=== PATIENT | female | born 1940 | race Caucasian/White ===

== ENCOUNTER → 2016-09-15 16:28 | Outpatient (CLI) | payer MEDICARE, BC ==
[2016-07-23 06:44] VITALS: BMI 27.8
[~2016-09-15 16:28] MED LIST: BAYER CHEWABLE81 MG PO; CALCIUM 600+D T1 TA1 PO; CATAPRES0.1 MG; CENTRUM COMPLE1 EACH PO; COZAAR25 MG PO; EVISTA60 MG PO; FUROSEMIDE20 MG PO; LIPITOR20 MG PO; NIFEDIPINE ER30 MG PO; TOPROL XL100 MG PO
== END | disposition home or self-care (01) ==
LOC: D.MAMMO 13:30
DX: R92.8 Other abnormal and inconclusive findings on diagnostic imaging of breast (principal)

== ENCOUNTER → 2017-03-16 16:58 | Outpatient (CLI) | payer MEDICARE, BC ==
[2016-07-23 06:44] VITALS: BMI 27.8
== END | disposition home or self-care (01) ==
LOC: D.MAMMO 09:00
DX: R92.8 Other abnormal and inconclusive findings on diagnostic imaging of breast (principal)

== ENCOUNTER → 2017-11-25 16:32 | Outpatient (CLI) | payer MEDICARE, BC ==
[2016-07-23 06:44] VITALS: BMI 27.8
[~2017-11-25 16:32] MED LIST changes: +COZAAR50 MG PO; +FEMARA2.5 MG PO; -FUROSEMIDE20 MG PO; +HYDROCODONE-APA1 TAB PO; +LASIX20 MG PO; +METOPROLOL TAR100 M1 PO
== END | disposition home or self-care (01) ==
LOC: D.MAMMO 09-20 09:00 → D.US 09-20 10:00 → D.MAMMO 10-14 13:30 → D.US 10-14 14:00 → D.MAMMO 10-26 10:30
DX: R92.8 Other abnormal and inconclusive findings on diagnostic imaging of breast (principal)

== ENCOUNTER → 2017-12-09 16:16 | Outpatient (CLI) | payer MEDICARE, BC ==
[2016-07-23 06:44] VITALS: BMI 27.8
== END | disposition home or self-care (01) ==
LOC: D.MAMMO 08:00 → D.US 10:00 → D.MAMMO 10:00
DX: R92.1 Mammographic calcification found on diagnostic imaging of breast (principal)

== ENCOUNTER 2018-01-18 05:59 | Day surgery (SDC) | payer MEDICARE, BC ==
[~2018-01-18] VITALS: Ht 167.6 cm; Wt 76.8 kg
[2018-01-18] VITALS (8 sets, daily range): BP systolic 139–169; BP diastolic 62–78; Ht 167.6 cm; Wt 76.8 kg
--- NOTE | ~2018-01-18 | OP ---
PATIENT NAME: ASHLEY HUMPHRIES MEDICAL RECORD: [id number] :40 LOCATION:[facility] D.1273 ADMISSION DATE: SURGEON: ANTHONY MCHUGH MD DATE OF OPERATION: 01/18/2018 PREOPERATIVE DIAGNOSES: 1. Recurrent right breast cancer. 2. Coronary artery disease. 3. Hypertension. 4. Hypercholesterolemia. POSTOPERATIVE DIAGNOSES: 1. Recurrent right breast cancer. 2. Coronary artery disease. 3. Hypertension. 4. Hypercholesterolemia. PROCEDURE: Right simple mastectomy with right axillary sentinel lymph node biopsy. SURGEON: Anthony Mchugh MD APPLICATIONS MANAGER: Anastasiia Stark APRN REPORT OF PROCEDURE: The patient's right chest and axilla were prepped and draped in sterile fashion. Preoperatively, the patient had undergone lymphoscintigraphy. We were able to localize a sentinel lymph node in the patient's right axilla. An ovoid incision was made over the patient's right chest including the patient's nipple areolar complex. Electrocautery was used to dissect through the subcutaneous tissues and we came underneath the tissues above and below creating superior and inferior flaps. Once we had the breast completely encircled from the overlying skin, then it was taken off of the pectoral muscle using electrocautery. This dissection was continued all the way up to the clavicle superiorly to the sternum medially inferiorly down to the superior aspect of the rectus muscles and laterally to the axillary fascia. Once the specimen was taken off, then it was marked appropriately and sent off for permanent. We then inspected the axilla and was able to find a single sentinel lymph node, we registered a reading of 1669. The sentinel lymph node was removed with multiple clips around the surrounding tissues and was sent off for permanent specimen. We inspected the remainder of the axilla and never saw any further signs of sentinel lymph nodes. We then irrigated out the wound thoroughly with sterile water and inspected to assure there was no sign of any active bleeding. A 10 flat PILO drains times 2 were placed through the patient's right axilla and rested over the pectoral muscle and in the right axilla. These were sutured into place with 3-0 nylons. The subcutaneous tissues were then reapproximated with interrupted 3-0 Vicryl and the skin incision was closed with bj. COMPLICATIONS: None. CONDITION: Stable. ANESTHESIA: General endotracheal. BLOOD LOSS: 30 mL. OPERATIVE REPORT [id number] ASHLEY HUMPHRIES TRANSINT:[id number] Voice Confirmation ID: [id number] DOCUMENT ID: [id number] ANTHONY MCHUGH MD at 0905 CC: SILVIANO GASPAR MD and ALEXIS MA [id number] DICTATION DATE: 01/18/18 1255 COSTUME SHOP MANAGER: 01/18/18 1405 [facility] [place] [id number] [place] [id number]
[~2018-01-18 05:59] MED LIST changes: -FEMARA2.5 MG PO; -HYDROCODONE-APA1 TAB PO
[2018-01-18 06:48] LABS: BASOPHILS 0.3 % (0-2); EOSINOPHILS 4.3 % (0-7); HEMATOCRIT 42.7 % (36.0-48.0); HEMOGLOBIN 13.9 g/dL (12-16); IMMATURE GRANULOCYTES 0.1 % (0-5); MCHC 32.6 g/dL (31.0-37.0); MCV 89.1 fL (80.0-100.0); MEAN PLATELET VOLUME 9.7 fL (7.4-10.4); MONOCYTES 8.4 % (2-11); NEUTROPHILS 60.9 % (40-80); PLATELET COUNT 267 10x3/uL (130-400); RBC 4.79 10x6/uL (4.00-5.40); RDW 13.1 % (11.5-14.5); WBC 9.2 10x3/uL (4.8-10.8)
[2018-01-18 06:58] LABS: APTT 31.2 SECONDS (22.8-39.4); INR 0.99 (0.85-1.17); PROTIME 12.7 SECONDS (11.6-15.0)
[2018-01-18 07:01] LABS: ANION GAP 11.9 mmol/L (8-16); CALCIUM 9.5 mg/dL (8.5-10.1); CARBON DIOXIDE 30.4 mmol/L (21.0-32.0); CREATININE - SERUM 1.4 mg/dL (0.6-1.3); POTASSIUM - SERUM 4.3 mmol/L (3.5-5.1)
[2018-01-19 03:12] VITALS: BP 148/66
[2018-01-19 07:30] LABS: BASOPHILS 0.2 % (0-2); EOSINOPHILS 3.8 % (0-7); HEMATOCRIT 35.9 % (36.0-48.0); HEMOGLOBIN 11.3 g/dL (12-16); IMMATURE GRANULOCYTES 0.1 % (0-5); LYMPHOCYTES 31.3 % (15-50); MCH 28.5 pg (26.0-34.0); MCHC 31.5 g/dL (31.0-37.0); MCV 90.7 fL (80.0-100.0); MEAN PLATELET VOLUME 10.3 fL (7.4-10.4); MONOCYTES 8.9 % (2-11); NEUTROPHILS 55.7 % (40-80); PLATELET COUNT 230 10x3/uL (130-400); RBC 3.96 10x6/uL (4.00-5.40); RDW 13.4 % (11.5-14.5); WBC 9.5 10x3/uL (4.8-10.8)
[2018-01-19 07:41] LABS: CALCIUM 8.3 mg/dL (8.5-10.1); CARBON DIOXIDE 26.6 mmol/L (21.0-32.0); CREATININE - SERUM 1.2 mg/dL (0.6-1.3); POTASSIUM - SERUM 4.6 mmol/L (3.5-5.1)
[2018-01-19 08:10] VITALS: BP 144/64
[2018-01-19] MEDS ORDERED: HYDROCODONE-APA1 TAB PO (09:05)
== END 2018-01-19 11:30 | disposition home or self-care (01) ==
LOC: D.LD 05:59 → D.OPS 05:59 → D.NM 08:00 → D.PAN 08:00 → D.LD 13:18 → D.OPS 01-19 11:30
PROVIDERS: Anesthesiology; Surgery
DX: C50.911 Malignant neoplasm of unspecified site of right female breast (principal); I25.10 Atherosclerotic heart disease of native coronary artery without angina pectoris; I10 Essential (primary) hypertension; E78.00 Pure hypercholesterolemia, unspecified; G47.30 Sleep apnea, unspecified; Z01.812 Encounter for preprocedural laboratory examination

== ENCOUNTER → 2018-02-02 09:42 | Outpatient (CLI) | payer MEDICARE, BC ==
[2018-01-18 16:39] VITALS: BMI 27.3
--- NOTE | ~2018-02-02 | EC ---
PATIENT:ASHLEY HUMPHRIES DATE OF SERVICE: 02/02/18 SEX: F MEDICAL RECORD: [id number] DATE OF : 40 LOCATION:[facility] AGE OF PATIENT: 77 ADMISSION DATE: 02/02/18 REFERRING PHYSICIAN: INTERPRETING PHYSICIAN: TAYLOR ASTUDILLO MD ECHOCARDIOGRAM REPORT ECHO CHARGES Date: CLINICAL DIAGNOSIS: ECHOCARDIOGRAPHIC MEASUREMENTS (adult normal given) AC root (d.<3.7cm) cm LV Septum d (<1.2 cm> cm Valve Excursion cm LV Septum (systole) cm Left Atria (s.<4.0cm> cm LVPW d(<1.2cm) cm RV (d.<2.3cm) cm LVPW (sytole) cm LV diastole(<5.6CM) cm MV E-F(>70mm/sec) cm LV systole cm LVOT Diameter cm MV exc.(>10mm) cm Est.ejection fraction (50-75%) % DOPPLER: LVIT cm/sec A cm/sec E cm/sec LA cm/sec RVSP mmHg LVOT cm/sec AOP1/2T m/s Asc. Ao cm/sec RVOT cm/sec RA cm/sec PA cm/sec AV Gradient Peak mmHg AV Mean mmHg AV Area cm MV Gradient Peak mmHg MV Mean mmHg MV Area cm COMMENTS: Licensed Practical Nurse: Windows Application Packager: [email or web address]# Pericardial Effusion DATE OF SERVICE: 02/02/2018 FINDINGS: 1. Left ventricular chamber size is within normal limits. Left ventricular systolic function is normal. Overall ejection fraction estimated at 55% to 60%. 2. Left atrium, right atrium, and right ventricle chamber sizes are within normal limits. 3. Valvular structures have normal structure and motion. 4. Doppler interrogation reveals only trace mitral regurgitation, trace tricuspid regurgitation, no other valvular insufficiency or stenosis. Pulmonary ECHOCARDIOGRAM REPORT [id number] ASHLEY HUMPHRIES systolic pressure is estimated 36 mmHg. 5. No evidence of pericardial effusion or left ventricular thrombus. TRANSINT:[id number] Voice Confirmation ID: [id number] DOCUMENT ID: [id number] TAYLOR ASTUDILLO MD at 1711 CC: [id number] DICTATION DATE: 02/02/18 1107 INSPECTOR REPAIRER SANDSTONE: 02/02/18 1227 [facility] [address] [place] [address]
[~2018-02-02 09:42] MED LIST changes: +FEMARA2.5 MG PO; +HYDROCODONE-APA1 TAB PO
== END | disposition home or self-care (01) ==
LOC: D.ECHO 09:42
DX: C50.811 Malignant neoplasm of overlapping sites of right female breast (principal)

== ENCOUNTER 2018-02-07 07:14 | Outpatient (CLI) | payer MEDICARE, BC ==
[~2018-02-07] VITALS: Ht 167.6 cm; Wt 75.0 kg
[~2018-02-07 07:14] MED LIST changes: -FEMARA2.5 MG PO
[2018-02-07] MEDS ORDERED: FEMARA2.5 MG PO (07:52)
[2018-02-07 08:00] VITALS: BP 142/72; Ht 167.6 cm; Wt 75.0 kg
[2018-02-07 08:00] LABS: BASOPHILS 0.3 % (0-2); EOSINOPHILS 3.9 % (0-7); HEMATOCRIT 39.9 % (36.0-48.0); HEMOGLOBIN 13.1 g/dL (12-16); IMMATURE GRANULOCYTES 0.1 % (0-5); LYMPHOCYTES 25.8 % (15-50); MCH 29.1 pg (26.0-34.0); MCHC 32.8 g/dL (31.0-37.0); MCV 88.7 fL (80.0-100.0); MEAN PLATELET VOLUME 9.6 fL (7.4-10.4); MONOCYTES 8.4 % (2-11); NEUTROPHILS 61.5 % (40-80); RDW 13.2 % (11.5-14.5); WBC 7.2 10x3/uL (4.8-10.8)
[2018-02-07 08:04] LABS: PLATELET COUNT 307 10x3/uL (130-400)
[2018-02-07 08:09] LABS: INR 0.99 (0.85-1.17); PROTIME 12.7 SECONDS (11.6-15.0)
[2018-02-07 08:10] LABS: APTT 30.2 SECONDS (22.8-39.4)
[2018-02-07 08:11] LABS: ANION GAP 11.9 mmol/L (8-16); CARBON DIOXIDE 28.9 mmol/L (21.0-32.0); CREATININE - SERUM 1.3 mg/dL (0.6-1.3); POTASSIUM - SERUM 3.8 mmol/L (3.5-5.1)
== END 2018-02-07 14:00 | disposition home or self-care (01) ==
LOC: D.SP 07:14
PROVIDERS: Radiology Vascular & Interventional Radiology
DX: R91.8 Other nonspecific abnormal finding of lung field (principal); C50.811 Malignant neoplasm of overlapping sites of right female breast; Z01.812 Encounter for preprocedural laboratory examination

== ENCOUNTER → 2018-06-07 13:53 | Outpatient (CLI) | payer MEDICARE, BC ==
[2018-02-07 08:00] VITALS: BMI 26.7
[~2018-06-07 13:53] MED LIST changes: +FEMARA2.5 MG PO; -NIFEDIPINE ER30 MG PO; +NIFEDIPINE60 MG/BOTT PO; +NORCO 10-325 TA1 TAB PO
== END | disposition home or self-care (01) ==
LOC: D.RAD 08:00
DX: C50.811 Malignant neoplasm of overlapping sites of right female breast (principal)

== ENCOUNTER 2018-07-05 05:39 | Day surgery (SDC) | payer MEDICARE, BC ==
[~2018-07-05] VITALS: Ht 167.6 cm; Wt 77.1 kg
--- NOTE | ~2018-07-05 | OP ---
PATIENT NAME: ASHLEY HUMPHRIES MEDICAL RECORD: [id number] :40 LOCATION:D.OPS ADMISSION DATE: SURGEON: ANTHNOY MCHUGH MD DATE OF OPERATION: 07/05/2018 PREOPERATIVE DIAGNOSES: 1. Breast cancer. 2. Hypertension. 3. Hyperlipidemia. 4. Atrial fibrillation. POSTOPERATIVE DIAGNOSES: 1. Breast cancer. 2. Hypertension. 3. Hyperlipidemia. 4. Atrial fibrillation. PROCEDURE: 1. Left subclavian vein port placement. 2. Fluoroscopic interpretation. SURGEON: Anthony Mchugh MD REPORT OF PROCEDURE: The patient's left chest was prepped and draped in sterile fashion. A needle was used to cannulate the left subclavian vein and a guidewire was advanced with ease. Fluoro was used to note that the wire was in good position in the venous system. A skin incision was made on the left superior-lateral chest and a subcutaneous pouch was made over the pectoral fascia. The catheter was tunneled between this pouch and the wire exit site. The port was then sutured to the pectoral fascia using interrupted 2-0 Prolenes times 2. The catheter was cut with a beveled tip at 25 cm. The dilator trocar device was then placed over the wire and the wire and dilator were removed. The catheter tip was advanced through the trocar and the trocar was removed. Fluoro was used to note that the wire was in good position in the venous system. The catheter aspirated nonpulsatile dark blood and flushed easily with heparinized saline. The subcutaneous tissues were then reapproximated with interrupted 3-0 Vicryl and the skin was closed with running subcutaneous 5-0 Monocryl. COMPLICATIONS: None. CONDITION: Stable. ANESTHESIA: General endotracheal. BLOOD LOSS: Minimal. TRANSINT:[id number] Voice Confirmation ID: [id number] DOCUMENT ID: [id number] OPERATIVE REPORT [id number] ASHLEY HUMPHRIES ANTHONY MCHUGH MD at 0916 CC: SILVIANO GASPAR MD and ALEXIS MA [phone] DICTATION DATE: 07/05/1842 WAVE SOLDER OFFBEARER: 07/05/1825 [facility] 07/05/18 [place] [address]
[~2018-07-05 05:39] MED LIST changes: -NORCO 10-325 TA1 TAB PO
[2018-07-05 06:23] LABS: ANION GAP 11.4 mmol/L (8-16); CALCIUM 9.1 mg/dL (8.5-10.1); CARBON DIOXIDE 29.8 mmol/L (21.0-32.0); CREATININE - SERUM 1.2 mg/dL (0.6-1.3); POTASSIUM - SERUM 4.2 mmol/L (3.5-5.1)
[2018-07-05 06:26] LABS: BASOPHILS 0 % (0-2); EOSINOPHILS 0.4 % (0-7); HEMATOCRIT 30.4 % (36.0-48.0); HEMOGLOBIN 9.7 g/dL (12-16); IMMATURE GRANULOCYTES 0.2 % (0-5); LYMPHOCYTES 39.1 % (15-50); MCH 28.7 pg (26.0-34.0); MCHC 31.9 g/dL (31.0-37.0); MCV 89.9 fL (80.0-100.0); MEAN PLATELET VOLUME 8.8 fL (7.4-10.4); MONOCYTES 6.5 % (2-11); NEUTROPHILS 53.8 % (40-80); PLATELET COUNT 259 10x3/uL (130-400); RBC 3.38 10x6/uL (4.00-5.40); RDW 18.7 % (11.5-14.5); WBC 4.5 10x3/uL (4.8-10.8)
[2018-07-05 06:28] LABS: INR 0.92 (0.85-1.17)
[2018-07-05 07:23] VITALS: BP 129/71; Ht 167.6 cm; Wt 77.1 kg
[2018-07-05] MEDS ORDERED: NORCO 10-325 TA1 TAB PO (08:39)
== END 2018-07-05 10:15 | disposition home or self-care (01) ==
LOC: D.OPS 05:39 → D.PAN 09:00 → D.OPS 09:00
PROVIDERS: Anesthesiology
DX: C50.919 Malignant neoplasm of unspecified site of unspecified female breast (principal); I10 Essential (primary) hypertension; E78.5 Hyperlipidemia, unspecified; I48.91 Unspecified atrial fibrillation; Z01.812 Encounter for preprocedural laboratory examination

== ENCOUNTER → 2018-07-08 10:27 | Outpatient (CLI) | payer MEDICARE, BC ==
[2018-07-05 07:23] VITALS: BMI 27.5
[~2018-07-08 10:27] MED LIST changes: +NORCO 10-325 TA1 TAB PO
== END | disposition home or self-care (01) ==
LOC: D.CT 10:27
DX: C50.811 Malignant neoplasm of overlapping sites of right female breast (principal); C34.12 Malignant neoplasm of upper lobe, left bronchus or lung; E78.2 Mixed hyperlipidemia; Z23 Encounter for immunization

== ENCOUNTER → 2018-09-13 07:20 | Outpatient (CLI) | payer MEDICARE, BC ==
[2018-07-05 07:23] VITALS: BMI 27.5
== END | disposition home or self-care (01) ==
LOC: D.CT 07:20
DX: C50.811 Malignant neoplasm of overlapping sites of right female breast (principal)

== ENCOUNTER 2018-11-06 17:25 | Inpatient (IN) | payer MEDICARE, BC ==
[~2018-11-06] VITALS: Ht 167.6 cm; Wt 77.6 kg
[2018-11-06] VITALS (8 sets, daily range): BP systolic 128–157; BP diastolic 58–75
--- NOTE | 2018-11-06 17:30 | NUR ---
PATIENT PLACED IN C-COLLAR
[2018-11-06 18:44] LABS: BASOPHILS 0.2 % (0-2); EOSINOPHILS 1.6 % (0-7); HEMATOCRIT 39.9 % (36.0-48.0); HEMOGLOBIN 13.1 g/dL (12-16); IMMATURE GRANULOCYTES 0.8 % (0-5); LYMPHOCYTES 38.4 % (15-50); MCH 28.7 pg (26.0-34.0); MCHC 32.8 g/dL (31.0-37.0); MCV 87.5 fL (80.0-100.0); MEAN PLATELET VOLUME 10.3 fL (7.4-10.4); MONOCYTES 7.9 % (2-11); NEUTROPHILS 51.1 % (40-80); PLATELET COUNT 260 10x3/uL (130-400); RBC 4.56 10x6/uL (4.00-5.40); RDW 13.7 % (11.5-14.5); WBC 11.9 10x3/uL (4.8-10.8)
[2018-11-06 18:54] LABS: APTT 27.6 SECONDS (22.8-39.4); INR 0.96 (0.85-1.17); PROTIME 12.3 SECONDS (11.6-15.0)
[2018-11-06 19:21] LABS: ALBUMIN 3.4 g/dL (3.4-5.0); ALKALINE PHOSPHATASE 70 U/L (46-116); ALT (SGPT) 38 U/L (10-68); BILIRUBIN - TOTAL 0.58 mg/dL (0.2-1.3); CALC OSMOLALITY 282 mosm/kg (275-300); CALCIUM 8.9 mg/dL (8.5-10.1); CARBON DIOXIDE 24.9 mmol/L (21.0-32.0); CHLORIDE - SERUM 102 mmol/L (98-107); CREATINE KINASE 279 UL (21-215); CREATININE - SERUM 1.4 mg/dL (0.6-1.3); GLUCOSE 138 mg/dL (74-106); POTASSIUM - SERUM 4.6 mmol/L (3.5-5.1); PRO BNP 235 pg/mL (0-450); PROTEIN - SERUM 7.8 g/dL (6.4-8.2); SODIUM 140 mmol/L (136-145); UREA NITROGEN 18 mg/dL (7-18); eGFR NON AFRICAN AMERICAN 38 mL/min (90-120)
[2018-11-07] VITALS (30 sets, daily range): BP systolic 105–159; BP diastolic 55–83; Ht 167.6 cm; Wt 77.6 kg
--- NOTE | 2018-11-07 01:10 | NUR ---
REPORT FROM JONATHAN MCKEON
--- NOTE | 2018-11-07 01:30 | NUR ---
PT DROWSY, BUT AWAKES TO NAME AND IS ORIENTED X 3
--- NOTE | 2018-11-07 01:53 | NUR ---
REPORT CALLED TO STACI RN IN CVICU, ADVISED THAT PATIENT WAS GOING TO CT AND WOULD WAIT FOR REPORT BEFORE TRANSPORT
--- NOTE | 2018-11-07 02:17 | NUR ---
PT BACK FROM CT, AWAKE AND ALERT ORIENTED X 3
--- NOTE | 2018-11-07 02:40 | NUR ---
PT DROWSY AWAKES TO NAME, PT ADVISED THAT SHE IS DOING OK, JUST HAVING SOME SLIGHT PAIN AT THIS TIME
--- NOTE | 2018-11-07 03:35 | NUR ---
REPORT CALLED PEDRITO TO JONATHAN SMALL AND UPDATED ON THE PATIENTS COND. AND THE NEW CHEST TUBE PLACEMENT
--- NOTE | 2018-11-07 03:52 | NUR ---
ARRIVED TO UNIT VIA STRETCHER, ACCOMPANIED BY SAND CONDITIONER MACHINE GLENNY. ALL ICU MONITORING INITIATED. ADMISSION ASSESSMENT COMPLETED PER FLOW SHEET, SEE FOR DETAILS. REPOSITIONED IN BED. DENIES OTHER NEEDS. CALL LIGHT WITHIN REACH. WILL CONTINUE TO MONITOR.
--- NOTE | 2018-11-07 04:26 | NUR ---
SON IN LAW AT BEDSIDE, UPDATE GIVEN, QUESTIONS ANSWERED. HE IS TAKING PATIENT'S BELONGINGS HOME WITH HIM, PATIENT AGREED.
--- NOTE | 2018-11-07 04:48 | NUR ---
ICE CHIPS PROVIDED PER PATIENTS REQUEST, TOLERATING WELL, NO N/V, OR DYSPHAGIA. WILL CONTINUE TO MONITOR.
--- NOTE | 2018-11-07 05:27 | NUR ---
ASSISSTED TO BEDPAN, NO UOP AT THIS TIME, ASSISSTED OFF OF BEDPAN. DENIES OTHER NEEDS. CALL LIGHT WITHIN REACH.
--- NOTE | 2018-11-07 07:00 | NUR ---
RECEIVED BEDSIDE REPORT AND ASSUMED CARE OF PATIENT. PATIENT ALERT AND ORIENTED X 4, IV INFUSING NS AT 20 CC/HR TO 20 GA IV TO LEFT AC WITH NO S/S OF INFILTRATION, DRESSING CLEAN, DRY AND INTACT. 22 GA IV TO LEFT WRIST, NSL, DRESSING CLEAN DRY AND INTACT, PATENT FLUSHES EASILY WITH POSITIVE BLOOD RETURN. VSS. CM - SR 98, RR 20, SPO2 - 92%, BBS CLEAR BUT DIMINISHED. CHEST TUBE TO RIGHT SIDE, WITH NO AIR LEAK DETECTED. DRESSING CLEAN DRY AND INTACT. HEAD TO TOE ASSESSMENT COMPLETED.
--- NOTE | 2018-11-07 07:41 | NUR ---
PATIENT PLACED ON BED SARAH AND GIVEN DRINK OF WATER. VSS. WILL CONTINUE TO MONITOR.
--- NOTE | 2018-11-07 07:47 | NUR ---
PATIENT TAKEN OFF BED SARAH. C/O PAIN TO RIGHT SIDE RIBS RATES 9/10, GIVEN PRN 2 MG MORPHINE IVP FOR PAIN. REPOSITIONED IN BED. VSS. VOIDED 200 CC CLOUDY YELLOW URINE.
--- NOTE | 2018-11-07 09:00 | NUR ---
PATIENT RESTING QUIETLY, VSS. TURNED AND REPOSITIONED IN BED.
--- NOTE | 2018-11-07 10:10 | NUR ---
PATIENT C/O PAIN TO RIGHT SIDE "RIBS" 510, GIVEN PRN TYLENOL 650 MG PO. REPOSITIONED IN BED. VSS.
--- NOTE | 2018-11-07 11:00 | NUR ---
REASSESSMENT COMPLETE. VSS. CHEST TUBE WITH 20 CC BLOODY DRAINAGE. REPOSITIONED IN BED. PATIENT RESTING QUIETLY.
--- NOTE | 2018-11-07 12:40 | NUR ---
PATIENT ATE APPROXIMATELY 30% OF LUNCH, C/O PAIN 7/10 TO RIBS ON RIGHT SIDE, GIVEN 2 MG MORPHINE IVP PER ORDER.
--- NOTE | 2018-11-07 13:02 | NUR ---
PATIENT PLACED ON BED SARAH, URINE OUTPUT 200 CC CLEAR BABAR URINE. REPOSITIONED IN BED. VSS.
[2018-11-07 13:06] LABS: HEMOGLOBIN 10.4 g/dL (12-16)
--- NOTE | 2018-11-07 13:15 | NUR ---
PATIENT RESTING QUIETLY WITH EYES CLOSED. VSS.
--- NOTE | 2018-11-07 14:24 | NUR ---
PATIENT RESTING QUEITLY WITH EYES CLOSED, VSS.
--- NOTE | 2018-11-07 14:39 | NUR ---
CONTACTED TO DARRIN CORDOBA REGARDING ORTHO CONSULT STATES HE WILL SEE PT AFTER CLINIC HOURS.
--- NOTE | 2018-11-07 14:54 | NUR ---
REASSESSMENT COMPLETE. PATIENT PLACED ON BED SARAH. VSS.
--- NOTE | 2018-11-07 16:28 | NUR ---
PATIENT RESTING QUIETLY WITH EYES CLOSED. VSS.
[2018-11-07 16:36] LABS: HEMATOCRIT 34.9 % (36.0-48.0); HEMOGLOBIN 10.7 g/dL (12-16)
--- NOTE | 2018-11-07 17:08 | NUR ---
PATIENT TURNED AND REPOSITIONED IN BED. VSS. GIVEN DINNER TRAY. CALL LIGHT IN REACH.
--- NOTE | 2018-11-07 17:21 | NUR ---
SPOKE TO DRD. COPE, STATED HE REVIEWED THE CT FOR PATIENT AND IT IS A FRACTURED SACRUM AND WILL NEED NEURO/SURGERY CONSULT. ORDER PLACED FOR NEURO/SURGERY DR. CLAROS PER DR. COPE AND DR. CLAROS CONTACTED AND NOTIFIED OF CONSULT.
--- NOTE | 2018-11-07 19:20 | NUR ---
PT AOX4, C/O PAIN AND DISCOMFORT. PT REPOSITIONED FOR COMFORT, CDL PROGRAM COORDINATOR TEACHING PROVIDED AND PT VERBALIZES UNDERSTANDING. SHALLOW RESPIRATIONS, LUNG SOUNDS CLEAR. S1S2 HEARD, PERIPHERAL PULSES PRESENT. BOWEL SOUNDS ACTIVE IN ALL QUADRANTS. FRESH WATER PROVIDED. PT DENIES FURTHER NEEDS AT THIS TIME. CALL LIGHT AND BEDSIDE TABLE WITHIN PT REACH. CPOC.
--- NOTE | 2018-11-07 20:00 | NUR ---
PT ASSISTED ON TO BEDPAN, PARTIAL LINEN CHANGE PROVIDED. VSS, PT POSITIONED IN BED FOR COMFORT. DENIES FURTHER NEEDS AT THIS TIME. CALL LIGHT AND BEDSIDE TABLE WITHIN PT REACH. CPOC.
[2018-11-07 20:37] LABS: HEMATOCRIT 34.4 % (36.0-48.0); HEMOGLOBIN 10.8 g/dL (12-16)
--- NOTE | 2018-11-07 23:20 | NUR ---
REASSESSMENT COMPLETE, NO ACUTE CHANGES AT THIS TIME. PT REPOSITIONED FOR COMFORT. VSS, CPOC.
[2018-11-08] VITALS (25 sets, daily range): BP systolic 106–160; BP diastolic 49–83
--- NOTE | 2018-11-08 01:19 | NUR ---
PT REPOSITIONED WITH PROMINENCES BRIDGED. COMMERCIAL ROOFER WITHIN PT REACH. PT RESTING QUIETLY VSS, DENIES FURTHER NEEDS AT THIS TIME. CALL LIGHT AND BEDSIDE TABLE WITHIN PT REACH. CPOC.
--- NOTE | 2018-11-08 03:20 | NUR ---
REASSESSMENT COMPLETE, NO ACUTE CHANGES AT THIS TIME. COUGH/DB WITH WEAK EFFORT. PT REPOSITIONED WITH PROMINENCES BRIDGED. VSS, CALL LIGHT WITHIN PT REACH. CPOC.
--- NOTE | 2018-11-08 04:20 | NUR ---
INCONTINENT OF URINE, PT CLEANED AND COMPLETE LINEN CHANGE PROVIDED. PT POSITIONED FOR COMFORT WITH PROMINENCES BRIDGED. DENIES FURTHER NEEDS AT THIS TIME. CALL LIGHT WITHIN PT REACH. CPOC.
[2018-11-08 04:50] LABS: BASOPHILS 0.1 % (0-2); EOSINOPHILS 1.1 % (0-7); HEMATOCRIT 41.2 % (36.0-48.0); IMMATURE GRANULOCYTES 0.2 % (0-5); LYMPHOCYTES 12.8 % (15-50); MCH 27.9 pg (26.0-34.0); MCHC 31.6 g/dL (31.0-37.0); MCV 88.4 fL (80.0-100.0); MEAN PLATELET VOLUME 9.8 fL (7.4-10.4); MONOCYTES 8.8 % (2-11); PLATELET COUNT 109 10x3/uL (130-400); RBC 4.66 10x6/uL (4.00-5.40); RDW 13.9 % (11.5-14.5); WBC 12.5 10x3/uL (4.8-10.8)
[2018-11-08 04:56] LABS: ANION GAP 13.7 mmol/L (8-16); CALCIUM 8.8 mg/dL (8.5-10.1); CARBON DIOXIDE 27.8 mmol/L (21.0-32.0); CREATININE - SERUM 1.3 mg/dL (0.6-1.3); PHOSPHOROUS 3.2 mg/dL (2.5-4.9); POTASSIUM - SERUM 4.5 mmol/L (3.5-5.1)
--- NOTE | 2018-11-08 08:25 | NUR ---
MORNING MEDICATIONS PROVIDED. DR CLAROS NOW AT BEDSIDE SPEAKING WITH PATIENT.
--- NOTE | 2018-11-08 09:50 | NUR ---
PT CLEANED UP FROM URINARY INCONTINENCE EPISODE. FULL BED BATH AND LINEN CHANGE PROVIDED.
[2018-11-08 12:43] LABS: HEMATOCRIT 30.1 % (36.0-48.0); HEMOGLOBIN 9.4 g/dL (12-16)
--- NOTE | 2018-11-08 12:59 | NUR ---
DR MCHUGH NOTIFIED OF PT RECENT H&H RESULTS.
--- NOTE | 2018-11-08 14:37 | MORECARE ---
CASE MANAGEMENT DISCHARGE SUMMARY PATIENT: ASHLEY HUMPHRIES UNIT: [id number] ADM DATE: 11/07/18 AGE: 78 : 40 SEX: F ROOM/BED: [facility] AUTHOR: RUBA RUSSELL PHYSICIAN: REFERRING PHYSICIAN: SERGEY MCHUGH MD DATE OF SERVICE: 11/08/18 Discharge Plan Patient Name: ASHLEY HUMPHRIES [facility] [facility] 1940 Planned Disposition: Anticipated Discharge Date: Discharge Date: Expected LOS: Initial Reviewer: [email or web address] Initial Review Date: 11/07/2018 Generated: 11/08/18 3:37 pm DCPIA - Discharge Planning Initial Assessment Updated by [email or web address]: Nabila Hernandez on 11/08/18 2:36 pm * Is the patient Alert and Oriented? Yes * How many steps to enter\exit or inside your home? * PCP FRANCESCA * Pharmacy [facility] * Preadmission Environment Home with Family * ADLs Independent * Equipment CPAP * Other Equipment WALKER * List name and contact numbers for known caregivers / representatives who currently or will assist patient after discharge: JON ARELLANO - MYLES- [phone] * Verbal permission to speak to the caregivers and representatives has been obtained from the patient. Yes * Please name any agencies selected above. HAD HH PREVIOUSLY AND REQUESTED [facility] IF NEEDED * Additional services required to return to the preadmission environment? No * Can the patient safely return to the preadmission environment? Yes * Has this patient been hospitalized within the prior 30 days at any hospital? No Patient Name: ASHLEY HUMPHRIES Page [id number] at 1437 All edits/amendments must be made on the electronic document DICTATION DATE: 11/08/181436 INCOME TAX EXPERT: MARISELA 11/08/181436 RPT#: [id number] DC DATE: STATUS: ADM IN [facility] [address] [place] [address] END OF REPORT
--- NOTE | 2018-11-08 14:45 | MORECARE ---
CASE MANAGEMENT DISCHARGE SUMMARY PATIENT: ASHLEY HUMPHRIES UNIT: [id number] ADM DATE: 11/07/18 AGE: 78 : 40 SEX: F [facility] AUTHOR: YVONNE,DOC PHYSICIAN: REFERRING PHYSICIAN: SERGEY MCHUGH MD DATE OF SERVICE: 11/08/18 Discharge Plan Patient Name: ASHLEY HUMPHRIES Facility: [facility]:[place] : 1940 Planned Disposition: Anticipated Discharge Date: Discharge Date: Expected LOS: Initial Reviewer: [email or web address] Initial Review Date: 11/07/2018 Generated: 11/08/18 3:45 pm Comments DCP- Discharge Planning Updated by [email or web address]: Nabila Hernandez on 11/08/18 1:[address] Patient Name: ASHLEY HUMPHRIES Admission Status: ER Accout number: [id number] Admission Date: 11-07-2018 : 1940 Admission Diagnosis: Attending: SERGEY MCHUGH Current LOS: 1 Anticipated DC Date: Planned Disposition: Primary Insurance: MEDICARE A & B Discharge Planning Comments: CM met with patient at bedside about discharge planning /needs. Patient states she lives alone. She stated that she may need rehab, physical therapy and possibly home health upon discharge. Patients states that she has had Home Health in the past and would like [facility] if needed. CM will continue to follow and assist as needed with discharge planning / needs. Export Freight Specialist: Nabila Hernandez DCPIA - Discharge Planning Initial Assessment Updated by [email or web address]: Nabila Hernandez on 11/08/18 2:36 pm * Is the patient Alert and Oriented? Yes * How many steps to enter\exit or inside your home? * PCP FRANCESCA * Pharmacy [facility] * Preadmission Environment Home with Family * ADLs Independent * Equipment CPAP * Other Equipment WALKER * List name and contact numbers for known caregivers / representatives who currently or will assist patient after discharge: JON ARELLANO - DAUGHTER- [phone] * Verbal permission to speak to the caregivers and representatives has been obtained from the patient. Yes * Please name any agencies selected above. HAD HH PREVIOUSLY AND REQUESTED [facility] IF NEEDED * Additional services required to return to the preadmission environment? No * Can the patient safely return to the preadmission environment? Yes * Has this patient been hospitalized within the prior 30 days at any hospital? No Last DP export: 11/08/18 1:37 pm Patient Name: ASHLEY HUMPHRIES Page [id number] at 1445 All edits/amendments must be made on the electronic document DICTATION DATE: 11/08/181443 SUPERVISOR JOINERS: MARISELA 11/08/181443 RPT#: [id number] DC DATE: STATUS: ADM IN [facility] [address] [place] [address] END OF REPORT
--- NOTE | 2018-11-08 15:45 | NUR ---
PT ASSISTED ON TO BEDPAN FOR URINATION. PULLED UP IN BED FOR COMFORT. CALL LIGHT IN REACH.
[2018-11-08 16:33] LABS: HEMATOCRIT 32.9 % (36.0-48.0); HEMOGLOBIN 10.5 g/dL (12-16)
--- NOTE | 2018-11-08 17:26 | NUR ---
DR MCHUGH BY TO SEE PATIENT. PLANS TO REMOVED CHEST TUBE TOMORROW. OK TO GET PT UP TO CHAIR/WALK.
--- NOTE | 2018-11-08 18:48 | NUR ---
PT ASSISTED UP TO BEDSIDE COMMODE. TOLERATED WELL. ALL NEW LINENS PLACED ON BED FOR URINARY INCONTINENCE. DRESSING TO RIGHT CHEST TUBE CHANGED DUE TO LEAKAGE. SITE CLEANED WITH CHLORHEXADINE AND SWABBED WITH IODINE. NEW DRESSING APPLIED. CT REMAINS IN PLACE AND STABLE. LIDOCAINE PATCH PLACED TO SACRUM.
[2018-11-08 20:51] LABS: HEMATOCRIT 29.4 % (36.0-48.0); HEMOGLOBIN 9.3 g/dL (12-16)
[2018-11-09] VITALS (15 sets, daily range): BP systolic 128–177; BP diastolic 52–83
--- NOTE | 2018-11-09 05:30 | NUR ---
PT OOB TO BEDSIDE COMMODE TO VOID THEN TO CHAIR. MOVES WITH MINIMAL ASSISTANCE. C/O LOWER BACK PAIN. O2 SAT IMPROVED AND OXYGEN REQUIREMENT DECREASES WHEN PT IS IN THE CHAIR. BED LINEN CHANGED.
--- NOTE | 2018-11-09 06:45 | NUR ---
PT ASSISTED BACK TO BED DUE TO HER NOT TOLERATING SITTING IN THE CHAIR DUE TO LOWER BACK PAIN.
[2018-11-09 07:38] LABS: HEMOGLOBIN 9.1 g/dL (12-16)
--- NOTE | 2018-11-09 08:18 | NUR ---
shift assessment complete. pt assisted up to bedside commode. pt transfered self to chair from commode with no assist. breakfast tray provided. denies further needs. call light in reach.
--- NOTE | 2018-11-09 09:25 | NUR ---
pt assisted back to bed as requested. physical therapist in room at time of activity for evaluation.
--- NOTE | 2018-11-09 09:51 | NUR ---
Regular diet ordered and pt is eating 30-50% of meals Pt reports she usually eats well however foods do not taste good Pt likes Boost Weight is stable Will add Boost to each tray RD following
--- NOTE | 2018-11-09 12:31 | NUR ---
DR MCHUGH BY TO SEE PATIENT
--- NOTE | 2018-11-09 13:30 | NUR ---
pt up walking with physical therapy. no distress.
--- NOTE | 2018-11-09 14:02 | NUR ---
Rehab Note- Acute Inpatient Rehab prescreen order received. The currently has a chest tube in place that will need to be d/c'd prior to acute inpatient rehab. THe patient also will need to be seen by PT to see her functional mobility. Will follow at this time. Thank you for this referral! Christiana Bautista RN Clinical Liaison, [facility]
--- NOTE | 2018-11-09 15:25 | NUR ---
CENTRAL LINE DRESSING CHANGE TO LEFT CHEST.
--- NOTE | 2018-11-09 16:30 | NUR ---
RECEIVED PT FROM CVICU. PT IS AAO AND UP WITH MAXIMAL ASSIST. ASSISTED PT ON AND OFF BEDSIDE TOILET WHERE PT VOIDED 100ML OF PALE YELLOW URINE. PT HAS BILATERAL LOWER EXTREMITY AND RIDE SIDED WEAKNESS. NS INFUSING @KVO AND DILUADID INFUSING @0.2/10/4 VIA LEFT INFUSAPORT. VSS AND WNL. RR EVEN AND UNLABORED ON HIGH FLOW NC 6L. LIDOCAINE PATCH IN PLACE ON LOWER BACK. PT DENIES ANY NEEDS AT THIS TIME. WILL CTM.
--- NOTE | 2018-11-09 18:43 | NUR ---
PT CURRENTLY LYING SEMI FOWLERS. CALL LIGHT W/I REACH. PT IS AAO AND UP WITH ASSIST. NS INFUSING @KVO AND DILUADID LENS GRINDER APPRENTICE INFUSING @0.2/06/09 VIA L.CHEST PORT. PT DENIES ANY NEEDS AT THIS TIME. NO S/S OF DISTRESS NOTED. WILL CTM.
--- NOTE | 2018-11-09 19:37 | NUR ---
RESUMING PATIENT CARE. PATIENT IS ALERT AND ORIENTED, RESTING COMFORTABLY IN BED. RESPIRATIONS ARE EVEN AND UNLABORED. NO S/S OF DISTRESS. NO C/O PAIN. PATIENT REMAINS ON LEATHER BELT LOOP CUTTER PUMP. ALL NEEDS MET AT THIS TIME. CALL LIGHT WITHIN REACH. WILL CPOC.
[2018-11-10] VITALS: BP 168/72
[2018-11-10 04:30] VITALS: BP 158/76
--- NOTE | 2018-11-10 08:00 | NUR ---
RECIEVED BEDSIDE REPORT. AM ROUNDS COMPLETED. VSS, AAOX4. NO S.S OF RR DISTRESS. PT ON ENAMEL SPRAYER PUMP. 6L HIGHFLOW NC. AM MEDS GIVEN. PUT IN A NEW LIDODERM PATCH, DATED. PT CURENTLY SITTING ON THE COUCH, FAMILY AT BEDSIDE. PT DENIES ANY NEEDS AT THIS TIME. WILL CPOC. CL IN REACH, BED IN LOW, SR UP X2.
[2018-11-10 08:54] LABS: BASOPHILS 0.1 % (0-2); EOSINOPHILS 1.8 % (0-7); HEMATOCRIT 27.8 % (36.0-48.0); HEMOGLOBIN 8.8 g/dL (12-16); IMMATURE GRANULOCYTES 0.3 % (0-5); LYMPHOCYTES 10.7 % (15-50); MCH 27.8 pg (26.0-34.0); MCHC 31.7 g/dL (31.0-37.0); MEAN PLATELET VOLUME 9.7 fL (7.4-10.4); MONOCYTES 10.5 % (2-11); NEUTROPHILS 76.6 % (40-80); RBC 3.16 10x6/uL (4.00-5.40); RDW 13.6 % (11.5-14.5); WBC 11.4 10x3/uL (4.8-10.8)
[2018-11-10 08:55] LABS: PLATELET COUNT 169 10x3/uL (130-400)
[2018-11-10 08:58] VITALS: BP 164/78
[2018-11-10 09:01] LABS: ALBUMIN 2.6 g/dL (3.4-5.0); ANION GAP 11.1 mmol/L (8-16); BILIRUBIN - TOTAL 1.3 mg/dL (0.2-1.3); CALCIUM 8.7 mg/dL (8.5-10.1); CARBON DIOXIDE 28.7 mmol/L (21.0-32.0); POTASSIUM - SERUM 3.8 mmol/L (3.5-5.1); PROTEIN - SERUM 6.7 g/dL (6.4-8.2)
[2018-11-10 12:53] VITALS: BP 157/82
--- NOTE | 2018-11-10 15:00 | NUR ---
PT STATES SHE IS HAVING DIFFICULTY SITTING ON HER BUTTOCKS. PROVIDED PT WITH EGG CRATE TOPPER ON HER CHAIR. PT STATES SHE SITS MORE COMFORTABLE NOW. WILL CPOC. CL IN REACH
[2018-11-10 16:07] VITALS: BP 155/70
--- NOTE | 2018-11-10 18:21 | NUR ---
PT STATES SHE HAS BEEN GOING TO THE BATHROOM ALL MORNING. STATES NO STOOL, ONLY URINE. SHE ALSO STATES SHE IS FEELING A LOT BETTER THIS EVENING. SHE STATES SHE WANT TO SIT ON THE CHAIR FOE A WHILE. CL IN REACH. WILL CPOC.
--- NOTE | 2018-11-10 19:19 | NUR ---
RESUMING PATIENT CARE. PATIENT IS ALERT AND ORIENTED. RESPIRATIONS ARE EVEN AND UNLABORED. NO S/S OF DISTRESS. NO C/O PAIN. CALL LIGHT WITHIN REACH. WILL CPOC.
[2018-11-10 20:00] VITALS: BP 202/98
[2018-11-11] VITALS: BP 196/84
--- NOTE | 2018-11-11 02:44 | NUR ---
PATIENT RESTING COMFORTABLY IN BED. RESPIRATIONS ARE EVEN AND UNLABORED. PATIENT REMAINS ON 6L HIGH FLOW NC. PATIENT CONTINUES ON A [employer]OR [employer] PUMP FOR PAIN. PATIENT RUNNING 97 SR ON TELEMETRY. NO S/S OF DISTRESS. NO C/O PAIN. CALL LIGHT WITHIN REACH. WILL CPOC.
[2018-11-11 05:02] LABS: BASOPHILS 0.2 % (0-2); EOSINOPHILS 1.3 % (0-7); HEMATOCRIT 25.3 % (36.0-48.0); HEMOGLOBIN 8.1 g/dL (12-16); IMMATURE GRANULOCYTES 0.2 % (0-5); LYMPHOCYTES 17.3 % (15-50); MCH 27.5 pg (26.0-34.0); MONOCYTES 11.9 % (2-11); NEUTROPHILS 69.1 % (40-80); PLATELET COUNT 159 10x3/uL (130-400); RBC 2.95 10x6/uL (4.00-5.40); RDW 13.5 % (11.5-14.5); WBC 9.4 10x3/uL (4.8-10.8)
[2018-11-11 05:06] LABS: MCV 85.8 fL (80.0-100.0)
[2018-11-11 05:20] LABS: ANION GAP 9.5 mmol/L (8-16); CALCIUM 8.7 mg/dL (8.5-10.1); CARBON DIOXIDE 32.1 mmol/L (21.0-32.0); POTASSIUM - SERUM 3.6 mmol/L (3.5-5.1)
--- NOTE | 2018-11-11 08:00 | NUR ---
AM ROUNDS COMPLETED. AAOX3, EXPIRATORY WHEEZES ON AUSCULTATION OF PT LUNGS. NO S/S OF RR DISTRESS, RR EVEN AND UNLABORED. ASSESSED PT BLOOD PRESSURE, SBP 208. LOPRESSOR WAS GIVEN WITH AM MEDS. WILL CTM. CL IN REACH, BED IN LOW, SR UP X2.
[2018-11-11 09:11] VITALS: BP 208/102
--- NOTE | 2018-11-11 09:13 | NUR ---
ASSESSED PT LEFT LOWER LEG. OBSERVED A RAISED BRUISED AREA. ASKED PT HOW SHE GOT THE BRUISE. PT STATES IT HAPPENED WHEN SHE FELL AT HOME. ASSIST PT TO BATHROOM. PT DENIES ANY NEEDS AT THIS TIME. WILL CPOC. CL IN REACH, BED IN LOW, SR UP X2.
--- NOTE | 2018-11-11 09:58 | NUR ---
REASSESED PT BLOOD PRESSURE, BP 177/86. PT PROVIDER ORDERED MORE BP MEDICINE AT THIS TIME. ALL BP MEDIOCINE GIVEN. WILL CTM. CL IN REACH, BED IN LOW.
[2018-11-11 11:42] VITALS: BP 141/65
--- NOTE | 2018-11-11 12:31 | MORECARE ---
CASE MANAGEMENT DISCHARGE SUMMARY PATIENT: ASHLEY HUMPHRIES UNIT: [id number] ADM DATE: 11/07/18 AGE: 78 : 40 SEX: F ROOM/BED: D.2105 AUTHOR: RUBA RUSSELL PHYSICIAN: REFERRING PHYSICIAN: SERGEY MCHUGH MD DATE OF SERVICE: 11/11/18 Discharge Plan Patient Name: ASHLEY [facility]RI[facility] [facility] 1940 Planned Disposition: Inpatient Rehab Anticipated Discharge Date: 11/11/18 Discharge Date: Expected LOS: 4 Initial Reviewer: [id number] Initial Review Date: 11/07/2018 Generated: 11/11/18 1:31 pm Comments DCP- Discharge Planning Updated by [id number]: Chon Lawson on 11/11/18 11:[address] Patient Name: ASHLEY HUMPHRIES Encounter No: [id number] : 1940 Primary Insurance: MEDICARE A & B Anticipated DC Date: 11-11-2018 Planned Disposition: Inpatient Rehab External Planned Provider: [facility] IN[facility]IENT RE[facility] DCP follow-up note: CM SPOKE TO SANITATION DIRECTOR OF INPATIENT REHAB AT [facility] ASKING FOR UPDATE AND IF PT WOULD LIKE REHAB AT DISCHARGE. CM MET WITH PT IN ROOM REGARDING DISCHARGE NEEDS AND PLANNING. PT REPORTS WANTING REHAB AT [facility] BEFORE GOING HOME IF POSSIBLE. CM DISCUSSED AVAILABILITY OF REHAB, LOCATIONS AND PROVIDERS. PT IS SURE SHE WANTS REHAB AT [facility]. CM ATTEMPTED TO NOTIFY [facility] OR [facility] OF INPATIENT REHAB, THEY WERE NOT IN. CM REVIEWED CHART, DOCTORS NOTES INDICATE WAITING ON ADMISSION DETERMINATION FROM REHAB. IMPORTANT MESSAGE FROM MEDICARE PROVIDED AND EXPLAINED TO PT. CM TO FOLLOW UP WITH [facility] IN[facility] TO DETERMINE IF PT CAN ADMIT TO REHAB TODAY. EVANGELIST Jeong DCP- Discharge Planning Updated by [id number]: Nabila Hernandez on 11/08/18 1:[address] Patient Name: ASHLEY HUMPHRIES Admission Status: ER Accout number: [id number] Admission Date: 11-07-2018 : 1940 Admission Diagnosis: Attending: LOLITA, CONGREGATIONAL Current LOS: 1 Anticipated DC Date: Planned Disposition: Primary Insurance: MEDICARE A & B Discharge Planning Comments: CM met with patient at bedside about discharge planning /needs. Patient states she lives alone. She stated that she may need rehab, physical therapy and possibly home health upon discharge. Patients states that she has had Home Health in the past and would like [facility] if needed. CM will continue to follow and assist as needed with discharge planning / needs. Plant Propagator: Nabila Hernandez DCPIA - Discharge Planning Initial Assessment Updated by [id number]: Nabila Hernandez on 11/08/18 2:36 pm * Is the patient Alert and Oriented? Yes * How many steps to enter\exit or inside your home? * PCP FR[facility]ES[facility] * Pharmacy [facility] * Preadmission Environment Home with Family * ADLs Independent * Equipment CPAP * Other Equipment WALKER * List name and contact numbers for known caregivers / representatives who currently or will assist patient after discharge: JON ARELLANO - MYLES- [phone] * Verbal permission to speak to the caregivers and representatives has been obtained from the patient. Yes * Please name any agencies selected above. HAD HH PREVIOUSLY AND REQUESTED [facility] IF NEEDED * Additional services required to return to the preadmission environment? No * Can the patient safely return to the preadmission environment? Yes * Has this patient been hospitalized within the prior 30 days at any hospital? No Coverage Notice Reviewer: [id number] - Chon Lawson Notice Issued Date-Time: 11/11/2018 11:33 Notice Type: IM Discharge Notice Notice Delivered To: Patient Relationship to Patient: Service Center Representative Name: Delivery Method: HAND - Hand Delivered Mell Days: Prior Verbal Notification: Recipient Understood Notice: Yes Recipient Signature: Yes Med Rec Note Co-signed by Attending: Coverage Notice Comment: Last DP export: 11/08/18 1:45 pm Patient Name: ASHLEY HUMPHRIES Page [phone] at 1231 All edits/amendments must be made on the electronic document DICTATION DATE: 11/11/18 1231 AUXILIARY PLANT OPERATOR: MARISELA 11/11/18 1231 RPT#: [id number] DC DATE: STATUS: ADM IN [facility] [address] [place] [address] END OF REPORT
--- NOTE | 2018-11-11 13:55 | NUR ---
PT NONI MORROW PER PHYSICIAN'S ORDER.
[2018-11-11] MEDS ORDERED: NORCO-10 PO (15:03)
[2018-11-11] MEDS ORDERED: COLACE100 MG PO (15:03)
--- NOTE | 2018-11-11 15:13 | MORECARE ---
CASE MANAGEMENT DISCHARGE SUMMARY PATIENT: ASHLEY HUMPHRIES UNIT: [id number] ADM DATE: 11/07/18 AGE: 78 : 40 SEX: F ROOM/BED: D.7710 AUTHOR: YVONNE,DOC PHYSICIAN: REFERRING PHYSICIAN: SERGEY MCHUGH MD DATE OF SERVICE: 11/11/18 Discharge Plan Patient Name: ASHLEY HUMPHRIES [facility] [facility] 1940 Planned Disposition: Inpatient Rehab Anticipated Discharge Date: 11/11/18 Discharge Date: Expected LOS: 4 Initial Reviewer: [id number] Initial Review Date: 11/07/2018 Generated: 11/11/18 4:13 pm Comments DCP- Discharge Planning Updated by [id number]: Chon Myers on 11/11/18 2:[address] Patient Name: ASHLEY HUMPHRIES Encounter No: [id number] : 1940 Primary Insurance: MEDICARE A & B Anticipated DC Date: 11-11-2018 Planned Disposition: Inpatient Rehab External Planned Provider: [facility] INPATIENT REHAB DCP follow-up note: CM SPOKE TO DEPARTMENT CLERK OF INPATIENT REHAB AT [facility] ASKING FOR UPDATE AND IF PT WOULD LIKE REHAB AT DISCHARGE. CM MET WITH PT IN ROOM REGARDING DISCHARGE NEEDS AND PLANNING. PT REPORTS WANTING REHAB AT [facility] BEFORE GOING HOME IF POSSIBLE. CM DISCUSSED AVAILABILITY OF REHAB, LOCATIONS AND PROVIDERS. PT IS SURE SHE WANTS REHAB AT [facility]. CM ATTEMPTED TO NOTIFY [facility] OR [facility] OF INPATIENT REHAB, THEY WERE NOT IN. CM REVIEWED CHART, DOCTORS NOTES INDICATE WAITING ON ADMISSION DETERMINATION FROM REHAB. IMPORTANT MESSAGE FROM MEDICARE PROVIDED AND EXPLAINED TO PT. CM TO FOLLOW UP WITH [facility] INPATIENT [facility] TO DETERMINE IF PT CAN ADMIT TO REHAB TODAY. Chon Myers, CASE MANAGEMENT Appended by Chon Myers on 11/11/2018 15:10 EXHIBIT PREPARATOR: CM SPOKE TO [facility] OF INPATIENT REHAB, THEY PLAN TO ACCEPT PT TODAY FOR REHAB IF STABLE FOR DISCHARGE. CM PAGED AND NOTIFIED DR. MCHUGH WHO INFORMED CM THAT PT WILL DISCHARGE TO REHAB TODAY. PT NOTIFIED, IN AGREEMENT WITH DISCHARGE TO INPATIENT REHAB. CM CALLED AND NOTIFIED [facility] OF INPATIENT REHAB. [facility] INPATIENT REHAB TO CONTACT MED 2 NURSE WITH ROOM NUMBER WHEN READY TO ACCEPT PT AND NURSE REPORT. CHON MYERS, CASE MANAGMENT DCP- Discharge Planning Updated by [id number]: Nabila Mary on 11/08/18 1:[address] Patient Name: ASHLEY HUMPHRIES Admission Status: ER Accout number: [id number] Admission Date: 11-07-2018 : 1940 Admission Diagnosis: Attending: SERGEY MCHUGH Current LOS: 1 Anticipated DC Date: Planned Disposition: Primary Insurance: MEDICARE A & B Discharge Planning Comments: CM met with patient at bedside about discharge planning /needs. Patient states she lives alone. She stated that she may need rehab, physical therapy and possibly home health upon discharge. Patients states that she has had Home Health in the past and would like [facility] if needed. CM will continue to follow and assist as needed with discharge planning / needs. Chopping Machine Operator: Nabila Hernandez DCPIA - Discharge Planning Initial Assessment Updated by [id number]: Nabila Mary on 11/08/18 2:36 pm * Is the patient Alert and Oriented? Yes * How many steps to enter\exit or inside your home? * PCP FRANCESCA * Pharmacy [facility] * Preadmission Environment Home with Family * ADLs Independent * Equipment CPAP * Other Equipment WALKER * List name and contact numbers for known caregivers / representatives who currently or will assist patient after discharge: JON ARELLANO - MYLES- [phone] * Verbal permission to speak to the caregivers and representatives has been obtained from the patient. Yes * Please name any agencies selected above. HAD HH PREVIOUSLY AND REQUESTED [facility] IF NEEDED * Additional services required to return to the preadmission environment? No * Can the patient safely return to the preadmission environment? Yes * Has this patient been hospitalized within the prior 30 days at any hospital? No Coverage Notice Reviewer: [id number] - Chon Myers Notice Issued Date-Time: 11/11/2018 11:33 Notice Type: IM Discharge Notice Notice Delivered To: Patient Relationship to Patient: Joiner Name: Delivery Method: HAND - Hand Delivered Mell Days: Prior Verbal Notification: Recipient Understood Notice: Yes Recipient Signature: Yes Med Rec Note Co-signed by Attending: Coverage Notice Comment: Last DP export: 11/11/18 11:31 am Patient Name: ASHLEY HUMPHRIES Page [phone] at 1513 All edits/amendments must be made on the electronic document DICTATION DATE: 11/11/181512 TOUCH UP PAINTER: MARISELA 11/11/181512 RPT#: [id number] DC DATE: STATUS: ADM IN [facility] [address] [place] [address] END OF REPORT
[2018-11-11 15:49] VITALS: BP 175/93
--- NOTE | 2018-11-11 19:47 | NUR ---
PT DC TI IN PATIENT REHAB, PT WILL BE DC TO REHAB WITH TELEMETRY ON. ALL PT BELONGINGS SENT DOWN TO REHAB WITH PT'S SON. PT INFUSAPORT TO LEFT CHEST PATENT. CALLED REPORT TO HANS.
--- NOTE | 2018-11-14 08:54 | MORECARE ---
CASE MANAGEMENT DISCHARGE SUMMARY PATIENT: ASHLEY HUMPHRIES UNIT: [id number] ADM DATE: 11/07/18 AGE: 78 : 40 SEX: F ROOM/BED: D.9485 AUTHOR: YVONNE,DOC PHYSICIAN: REFERRING PHYSICIAN: SERGEY MCHUGH MD DATE OF SERVICE: 11/14/18 Discharge Plan Patient Name: ASHLEY HUMPHRIES [facility] [facility] 1940 Planned Disposition: Inpatient Rehab Anticipated Discharge Date: 11/11/18 Discharge Date: 11/11/2018 Expected LOS: 4 Initial Reviewer: [id number] Initial Review Date: 11/07/2018 Generated: 11/14/18 9:54 am Comments DCP- Discharge Planning Updated by [id number]: Chon Myers on 11/11/18 1:[address] Patient Name: ASHLEY HUMPHRIES Encounter No: [id number] : 1940 Primary Insurance: MEDICARE A & B Anticipated DC Date: 11-11-2018 Planned Disposition: Inpatient Rehab External Planned Provider: [facility] IN[facility] RE[facility] DCP follow-up note: CM SPOKE TO RECEIVING TELLER OF INPATIENT REHAB AT [facility] ASKING FOR UPDATE AND IF PT WOULD LIKE REHAB AT DISCHARGE. CM MET WITH PT IN ROOM REGARDING DISCHARGE NEEDS AND PLANNING. PT REPORTS WANTING REHAB AT [facility] BEFORE GOING HOME IF POSSIBLE. CM DISCUSSED AVAILABILITY OF REHAB, LOCATIONS AND PROVIDERS. PT IS SURE SHE WANTS REHAB AT [facility]. CM ATTEMPTED TO NOTIFY [facility] OR [facility] OF INPATIENT REHAB, THEY WERE NOT IN. CM REVIEWED CHART, DOCTORS NOTES INDICATE WAITING ON ADMISSION DETERMINATION FROM REHAB. IMPORTANT MESSAGE FROM MEDICARE PROVIDED AND EXPLAINED TO PT. CM TO FOLLOW UP WITH [facility] INPATIENT REHAB TO DETERMINE IF PT CAN ADMIT TO REHAB TODAY. Chon Myers, CASE MANAGEMENT Appended by Chon Myers on 11/11/2018 15:10 TIME BUYER: CM SPOKE TO [facility] OF INPATIENT REHAB, THEY PLAN TO ACCEPT PT TODAY FOR REHAB IF STABLE FOR DISCHARGE. CM PAGED AND NOTIFIED DR. MCHUGH WHO INFORMED CM THAT PT WILL DISCHARGE TO REHAB TODAY. PT NOTIFIED, IN AGREEMENT WITH DISCHARGE TO INPATIENT REHAB. CM CALLED AND NOTIFIED [facility] OF INPATIENT REHAB. [facility] INPATIENT REH[facility] TO CONTACT MED 2 NURSE WITH ROOM NUMBER WHEN READY TO ACCEPT PT AND NURSE REPORT. CHON MYERS, CASE MANAGMENT DCP- Discharge Planning Updated by [id number]: Nabila Hernandez on 11/08/18 12:[address] Patient Name: ASHLEY HUMPHRIES Admission Status: ER Accout number: [id number] Admission Date: 11-07-2018 : 1940 Admission Diagnosis: Attending: SERGEY MCHUGH Current LOS: 1 Anticipated DC Date: Planned Disposition: Primary Insurance: MEDICARE A & B Discharge Planning Comments: CM met with patient at bedside about discharge planning /needs. Patient states she lives alone. She stated that she may need rehab, physical therapy and possibly home health upon discharge. Patients states that she has had Home Health in the past and would like [facility] if needed. CM will continue to follow and assist as needed with discharge planning / needs. Front Edger: Nabila Hernandez DCPIA - Discharge Planning Initial Assessment Updated by [id number]: Nabila Hernandez on 11/08/18 2:36 pm * Is the patient Alert and Oriented? Yes * How many steps to enter\exit or inside your home? * PCP FRANCESCA * Pharmacy [facility] * Preadmission Environment Home with Family * ADLs Independent * Equipment CPAP * Other Equipment WALKER * List name and contact numbers for known caregivers / representatives who currently or will assist patient after discharge: JON BUENO- [phone] * Verbal permission to speak to the caregivers and representatives has been obtained from the patient. Yes * Please name any agencies selected above. HAD HH PREVIOUSLY AND REQUESTED [facility] IF NEEDED * Additional services required to return to the preadmission environment? No * Can the patient safely return to the preadmission environment? Yes * Has this patient been hospitalized within the prior 30 days at any hospital? No Coverage Notice Reviewer: [id number] - Chon Myers Notice Issued Date-Time: 11/11/2018 11:33 Notice Type: IM Discharge Notice Notice Delivered To: Patient Relationship to Patient: Home Supervisor Name: Delivery Method: HAND - Hand Delivered Mell Days: Prior Verbal Notification: Recipient Understood Notice: Yes Recipient Signature: Yes Med Rec Note Co-signed by Attending: Coverage Notice Comment: Last DP export: 11/11/18 1:13 pm Patient Name: ASHLEY HUMPHRIES Page [phone] at 0854 All edits/amendments must be made on the electronic document DICTATION DATE: 11/14/18852 CUSTOMER RELATIONS COORDINATOR: MARISELA 11/14/18852 RPT#: [id number] DC DATE:11/11/18 STATUS: DIS IN [facility] [address] [place] [address] END OF REPORT
== END 2018-11-11 19:51 | DRG 964 ==
LOC: D.ER 17:25 → D.CVICU 11-07 01:18 → D.M2 11-07 01:18
PROVIDERS: Family Medicine; ADMIT Surgery; ATTEND Surgery
PROC: 0W9930Z Drainage of Right Pleural Cavity with Drainage Device, Percutaneous Approach (ICD-10-PCS; principal; 2018-11-06)
PROC: 0HQ0XZZ Repair Scalp Skin, External Approach (ICD-10-PCS; 2018-11-06)
DX: S27.0XXA Traumatic pneumothorax, initial encounter (principal); S06.2X1A Diffuse traumatic brain injury with loss of consciousness of 30 minutes or less, initial encounter; S22.41XA Multiple fractures of ribs, right side, initial encounter for closed fracture; S32.10XA Unspecified fracture of sacrum, initial encounter for closed fracture; S36.113A Laceration of liver, unspecified degree, initial encounter; W10.9XXA Fall (on) (from) unspecified stairs and steps, initial encounter; S01.01XA Laceration without foreign body of scalp, initial encounter; S80.12XA Contusion of left lower leg, initial encounter; I10 Essential (primary) hypertension; M81.0 Age-related osteoporosis without current pathological fracture; G62.9 Polyneuropathy, unspecified; Z87.891 Personal history of nicotine dependence

== ENCOUNTER 2018-11-11 20:02 | Inpatient (IN) | payer MEDICARE, BC ==
[~2018-11-11] VITALS: Ht 167.6 cm; Wt 77.1 kg
[~2018-11-11 20:02] MED LIST changes: +COLACE100 MG PO; +NORCO-10 PO
[2018-11-11 22:48] VITALS: BP 203/89; BMI 27.5
--- NOTE | 2018-11-11 23:56 | NUR ---
C/O PAIN LEVEL 9/10 TO RT RIB CAGE AND "BOTTOM", MEDICATED WITH TYLENOL 650 MG PO. NO OTHER REQUESTS OR COMPLAINTS AT THIS TIME. BED IS DOWN LOW WITH SIDE RAILS UP X2 AND CALL LIGHT IS IN REACH.
--- NOTE | 2018-11-12 04:06 | NUR ---
PATIENT IS SLEEPING. BED IS DOWN LOW WITH SIDE RAILS UP X2 AND CALL LIGHT IN REACH.
[2018-11-12 06:21] LABS: BASOPHILS 0.1 % (0-2); EOSINOPHILS 2.7 % (0-7); HEMATOCRIT 27.3 % (36.0-48.0); HEMOGLOBIN 8.7 g/dL (12-16); IMMATURE GRANULOCYTES 0.4 % (0-5); LYMPHOCYTES 24.8 % (15-50); MCH 27.4 pg (26.0-34.0); MCHC 31.9 g/dL (31.0-37.0); MCV 86.1 fL (80.0-100.0); MEAN PLATELET VOLUME 9.4 fL (7.4-10.4); MONOCYTES 15.4 % (2-11); NEUTROPHILS 56.6 % (40-80); PLATELET COUNT 189 10x3/uL (130-400); RBC 3.17 10x6/uL (4.00-5.40); RDW 13.8 % (11.5-14.5); WBC 9.4 10x3/uL (4.8-10.8)
[2018-11-12 06:29] LABS: ANION GAP 7.5 mmol/L (8-16); CALCIUM 8.8 mg/dL (8.5-10.1); CARBON DIOXIDE 34.9 mmol/L (21.0-32.0); CREATININE - SERUM 1.1 mg/dL (0.6-1.3); POTASSIUM - SERUM 3.4 mmol/L (3.5-5.1)
[2018-11-12 08:00] VITALS: BP 147/69
--- NOTE | 2018-11-12 08:14 | NUR ---
ASSISTED UP TO SIDE OF BED.DRSG TO RIGHT SIDE OF RIBS INTACT.BREAKFAST GIVEN.CL IN REACH.
[2018-11-12 09:37] VITALS: Ht 167.6 cm; Wt 77.1 kg
--- NOTE | 2018-11-12 12:00 | NUR ---
RETURNED TO ROOM FROM THERAPY.ERA WELL.CL IN REACH.WILL SIT UP FOR LUNCH.
--- NOTE | 2018-11-12 16:00 | NUR ---
RESTING QUIETLY.CL IN REACH.
--- NOTE | 2018-11-12 19:06 | NUR ---
PATIENT IS RESTING IN HER BED AND HER SON IS SITTING AT BEDSIDE. THEY DENY ANY NEEDS AT THIS TIME. BED IS DOWN LOW WITH SIDE RAILS UP X2 AND CALL LIGHT IS IN REACH.
[2018-11-12 22:32] VITALS: BP 143/68
--- NOTE | 2018-11-13 00:05 | NUR ---
PATIENT IS SLEEPING. BED IS DOWN LOW WITH SIDE RAILS UP X2. CL IN REACH.
--- NOTE | 2018-11-13 04:04 | NUR ---
RESTING IN BED. HAS BEEN MEDICATED FOR PAIN. BED IS DOWN LOW WITH SIDE RAILS UP AND CALL LIGHT IN REACH.
--- NOTE | 2018-11-13 08:00 | NUR ---
SHIFT ASSMT COMPLETED.
[2018-11-13 08:32] VITALS: BP 157/75
--- NOTE | 2018-11-13 19:13 | NUR ---
PATIENT IS RESTING IN HER BED. SHE DENIES ANY NEEDS. BED IS DOWN LOW WITH SIDE RAILS UP X2. CL IN REACH.
[2018-11-13 20:45] VITALS: BP 128/65
--- NOTE | 2018-11-14 00:05 | NUR ---
PATIENT ASSISTED TO THE BATHROOM. DENIES ANY OTHER NEEDS AT THIS TIME. BED IS DOWN LOW AND CALL LIGHT IS IN REACH.
--- NOTE | 2018-11-14 04:05 | NUR ---
PATIENT IS SLEEPING. BED IS DOWN LOW WITH SIDE RAILS UP X2, CL IN PLACE.
[2018-11-14 07:26] LABS: ANION GAP 9.7 mmol/L (8-16); CALCIUM 9.2 mg/dL (8.5-10.1); CARBON DIOXIDE 33.2 mmol/L (21.0-32.0); CREATININE - SERUM 1.1 mg/dL (0.6-1.3)
[2018-11-14 07:28] LABS: BASOPHILS 0.1 % (0-2); EOSINOPHILS 1.9 % (0-7); HEMATOCRIT 26.6 % (36.0-48.0); HEMOGLOBIN 8.5 g/dL (12-16); IMMATURE GRANULOCYTES 1.1 % (0-5); LYMPHOCYTES 18.8 % (15-50); MCH 27.9 pg (26.0-34.0); MCV 87.2 fL (80.0-100.0); MEAN PLATELET VOLUME 10.1 fL (7.4-10.4); MONOCYTES 11.5 % (2-11); NEUTROPHILS 66.6 % (40-80); PLATELET COUNT 181 10x3/uL (130-400); RBC 3.05 10x6/uL (4.00-5.40); RDW 14.4 % (11.5-14.5)
[2018-11-14 07:35] LABS: POTASSIUM - SERUM 3.9 mmol/L (3.5-5.1)
[2018-11-14 08:02] VITALS: BP 139/67
--- NOTE | 2018-11-14 08:37 | NUR ---
ALERT AND ORIENTED.NO C/O PAIN. ATE BREAKFAST. CL IN REACH.
--- NOTE | 2018-11-14 11:02 | NUR ---
Nutrition Follow Up: Pt was in therapy at the time of RD visit. Interview deferred. Diet: Regular; Ensure TID PO Intake: 39% meal avg BM: 11/14/18 Labs reviewed Meds noted including Lasix Rec continue current diet, supplement regimen. Will continue to honor food preferences. RD following.
--- NOTE | 2018-11-14 13:38 | NUR ---
SHOWER TODAY PER OT. NO DISTRESS NOTED. CL IN REACH.
--- NOTE | 2018-11-14 16:06 | NUR ---
NO CHANGE IN ASSESSMENT. NO C/O PAIN. RESP EVEN AND UNLABORED. CL IN REACH.
[2018-11-14 20:00] VITALS: BP 134/51
--- NOTE | 2018-11-14 20:37 | NUR ---
PT A&O, PLEASANT, REQUESTING PAIN MEDS, GIVING WITH MED PASS, FLUIDS AND CALL LIGHT WITHIN REACH
--- NOTE | 2018-11-15 01:15 | NUR ---
PT ASLEEP NO NEDS NOTED FLUIDS AND CALL LIGHT WITHIN REACH
[2018-11-15 08:00] VITALS: BP 145/68
--- NOTE | 2018-11-15 10:52 | NUR ---
ALERT AND ORIENTED. NO DISTRESS NOTED. PARTICIPATING IN THERAPY THIS AM.
--- NOTE | 2018-11-15 11:23 | NUR ---
PATIENT ADMITTED TO REHAB FROM ACUTE FLOOR. PATIENT SUSTAINED A FALL AT HOME AND WAS ADMITTED TO ACUTE FLOOR. HER PCP IS DR. MA AND IF HOME HEALTH IS NEEDED AT DISCHARGE SHE WOULD LIKE [facility]. DME AT HOME IS A WALKER AND HER C-PAP. WILL CONTINUE TO FOLLOW WITH PATIENT.
--- NOTE | 2018-11-15 13:38 | NUR ---
DR GASPAR NURSE ILA CASTILLO WANTED TO ORDER AN ECHO. CALLED ILA CASTILLO TO LET HER KNOW WHEN ESTIMATED DC DATE IS. ALSO, LET HER KNOW PER WREATH MAKER HUDSON THAT THE ECHO WILL NEED TO BE SCHEDULED OUT PATIENT AFTER DC'D FROM THE REHAB UNIT.
--- NOTE | 2018-11-15 16:55 | NUR ---
PT RESTING IN BED. CALL LIGHT IN REACH. PT WATCHING TV. BED IN LOW. SIDE RAILS X2. PT ON O2 VIA HIGH FLOW NC AT 4.5L. PT DENIES NEEDS OR PAIN. WILL CONTINUE TO MONITOR.
--- NOTE | 2018-11-15 19:27 | NUR ---
AWAKE AND ALERT. ASSISTED TO BATHROOM AND NOTED MINIMAL ASSIST. O2/4.5L OF O2 ON PER HIGH FLOW CANNULA. LEFT CHEST INFUSAPORT IN PLACE. RECENTLY MEDICATED FOR PAIN. WILL MONITOR FOR EFFECTIVENESS. FAMILY AT BEDSIDE.
[2018-11-15 19:57] VITALS: BP 138/57
--- NOTE | 2018-11-16 02:53 | NUR ---
CONTINUES RESTING IN BED. NO CHANGE IN CONDITION. RESPIRATIONS UNLABORED.
[2018-11-16 06:41] LABS: BASOPHILS 0.2 % (0-2); EOSINOPHILS 2.7 % (0-7); HEMATOCRIT 27.6 % (36.0-48.0); HEMOGLOBIN 8.6 g/dL (12-16); IMMATURE GRANULOCYTES 0.8 % (0-5); LYMPHOCYTES 22.4 % (15-50); MCH 27.7 pg (26.0-34.0); MCHC 31.2 g/dL (31.0-37.0); MCV 88.7 fL (80.0-100.0); MEAN PLATELET VOLUME 9.2 fL (7.4-10.4); MONOCYTES 12.8 % (2-11); NEUTROPHILS 61.1 % (40-80); RBC 3.11 10x6/uL (4.00-5.40)
[2018-11-16 06:48] LABS: ANION GAP 10.2 mmol/L (8-16); CALCIUM 8.7 mg/dL (8.5-10.1); CARBON DIOXIDE 32.5 mmol/L (21.0-32.0); CREATININE - SERUM 1.2 mg/dL (0.6-1.3); POTASSIUM - SERUM 3.7 mmol/L (3.5-5.1)
[2018-11-16 06:55] LABS: PLATELET COUNT 319 10x3/uL (130-400); WBC 11.4 10x3/uL (4.8-10.8)
--- NOTE | 2018-11-16 07:55 | NUR ---
RESTING WO DISTRESS. RESP EVEN AND UNLABORED. CL IN REACH.
[2018-11-16 08:00] VITALS: BP 140/68
--- NOTE | 2018-11-16 08:38 | NUR ---
SHOWER THIS AM PER FOWL BLOOD TESTER.
--- NOTE | 2018-11-16 12:35 | NUR ---
RESULTS OF R SHOULDER XRAY SHOWN TO DR VIRGEN. CT OF SHOULDER/SCUPLA ORDERED FOR FURTHER EVALUATION. EATING LUNCH AT THIS TIME.
--- NOTE | 2018-11-16 16:31 | NUR ---
CT RESULTS CALLED TO DR SAMS. CONSULTED ORTHO/DR SABA- CALL BACK NUMBER LEFT RE: CT SCAN RESULTS OF R SHOULDER/SCAPULA.
--- NOTE | 2018-11-16 18:17 | NUR ---
NO CHANGE IN ASSESSMENT. RESP EVEN AND UNLABORED. NO C/O PAIN AT THIS TIME.
--- NOTE | 2018-11-16 18:37 | NUR ---
CHANGED INFUSA PORT L CHEST USING STERILE PROCEDURE. CHANGED R DRESSING ON SIDE. NO DRAINAGE NOTED. SUTURE INTACT.
--- NOTE | 2018-11-16 19:10 | NUR ---
GREETED PATIENT AND INTRODUCED MYSELF TO PATIENT. PATIENT IS LAYING IN BED AND DENIES ANY NEEDS AT THIS TIME. CALL LIGHT IN REACH.
[2018-11-16 21:19] VITALS: BP 153/68
--- NOTE | 2018-11-17 00:18 | NUR ---
ASSISTED PATIENT TO BATHROOM USING ONE PERSON ASSIST. BACK TO BED AND REPOSITIONED ON RIGHT SIDE. CALL LIGHT IN REACH.
--- NOTE | 2018-11-17 01:14 | NUR ---
GREETED PATIENT AND INTRODUCED MYSELF. PATIENT IS LAYING IN BED AND DENIES ANY NEEDS AT THIS TIME. CALL LIGHT IN REACH.
--- NOTE | 2018-11-17 02:10 | NUR ---
ASSISTED PATIENT TO BATHROOM USING ONE PERSON ASSIST. PATIENT BACK TO BED AND REPOSITIONED FOR COMFORT. CALL LIGHT IN REACH.
--- NOTE | 2018-11-17 02:38 | NUR ---
PATIENT ASLEEP LAYING ON LEFT SIDE. 02 AT 3L IN USE VIA NC. RESPIRATIONS EVEN. NO SIGNS OF DISTRESS. CALL LIGHT IN REACH.
[2018-11-17 08:14] VITALS: BP 134/54
--- NOTE | 2018-11-17 14:38 | NUR ---
Nutrition Follow Up: Pt stated that her appetite is improving. RD encouraged pt to continue to increase po intake as able. Diet: Regular; Ensure TID PO Intake: 43% meal avg BM: 11/14/18 Labs reviewed Meds noted including Lasix Rec continue current diet, supplement regimen. RD following.
--- NOTE | 2018-11-17 16:54 | NUR ---
PATIENT DISCHARGING HOME IN AM WITH FAMILY.[facility] WILL RESUME CARE AT HOME. PATIENT WILL KEEP APPOINTMENTS WITH DR. GASPAR SCHEDULED. DR. SABA 11/29/18 @ 12:30. PATIENT CHOICE FORM FOR HOME HEALTH AND [facility] FORMS SIGNED, COPY GIVEN TO PATIENT AND FILED IN CHART. DISCHARGE INSTRUCTIONS WITH [facility] [employer] FAXED TO PCP AND TO HOME HEALTH.
--- NOTE | 2018-11-17 19:59 | NUR ---
PT ASLEEP NO NEEDS NOTED, FELL DOWN STAIRS CARRING A BOX, LACERATION TO BACK OF HEAD EVELIO REMOVED, FX RT SCAPULA SLING USED FOR COMFORT, FX SACRUM AND RIBS 3 THRU 7, LACERATED LIVER, MULTIPLE BRUISES OVER MULTIPLE PARTS OF HER BODY, INFUSAPORT TO BE REMOVED WITH HEPARIN FLUSH PT GOING HOME TOMORROW, FLUIDS AND CALL LIGHT WITHIN REACH
[2018-11-17 20:57] VITALS: BP 150/71
--- NOTE | 2018-11-17 21:00 | NUR ---
REMOVED PTS IV OUT OF INFUSAPORT, NEEDLE INTACT, FLUIDS AND CALL LIGHT WITHIN REACH
--- NOTE | 2018-11-18 01:38 | NUR ---
PT HAS REQUESTED AND BEEN GIVEN PRN TYLENOL TWICE SO FAR THIS SHIFT, C/O SHOULDER PAIN, FLUIDS AND CALL LIGHT WITHIN REACH
--- NOTE | 2018-11-18 06:29 | NUR ---
PT UP TO TOILET, REQUESTED TYLENOL FOR RT SHOULDER PAIN GIVEN, FLUIDS AND CALL LIGHT WITHIN REACH
[2018-11-18 07:01] LABS: BASOPHILS 0.2 % (0-2); EOSINOPHILS 1.9 % (0-7); HEMATOCRIT 32.4 % (36.0-48.0); HEMOGLOBIN 10.1 g/dL (12-16); IMMATURE GRANULOCYTES 0.6 % (0-5); LYMPHOCYTES 20.6 % (15-50); MCH 27.8 pg (26.0-34.0); MCHC 31.2 g/dL (31.0-37.0); MCV 89.3 fL (80.0-100.0); MEAN PLATELET VOLUME 8.9 fL (7.4-10.4); MONOCYTES 9.8 % (2-11); NEUTROPHILS 66.9 % (40-80); RBC 3.63 10x6/uL (4.00-5.40); RDW 15.5 % (11.5-14.5); WBC 10.4 10x3/uL (4.8-10.8)
[2018-11-18 07:06] LABS: ANION GAP 10.5 mmol/L (8-16); CALCIUM 9.1 mg/dL (8.5-10.1); CARBON DIOXIDE 32.3 mmol/L (21.0-32.0); CREATININE - SERUM 1.1 mg/dL (0.6-1.3); POTASSIUM - SERUM 3.8 mmol/L (3.5-5.1)
[2018-11-18 07:11] LABS: PLATELET COUNT 383 10x3/uL (130-400)
[2018-11-18 07:30] VITALS: BP 136/64
--- NOTE | 2018-11-18 07:45 | NUR ---
ALERT AND ORIENTED.DENIES PAIN AT PRESENT TIME.O2 AT 2L/MIN NC.CL IN EASY REACH,BED IN LOW POSITION.WILL CONTINUE WITH PLAN OF CARE.
[2018-11-18] MEDS ORDERED: NORCO-10 PO (08:23)
--- NOTE | 2018-11-18 14:00 | NUR ---
DISCHARGE TEACHING WRITTEN AND ORAL DONE.DOES NOT WANT [facility] FOR PAIN CONTROL AT HOME .REQUEST FOR TRAMADOL.CALL PLACED TO OFFICE.NEW ORDERS FOR TRAMADOL 50MG PO Q 6 HOUR PRN PAIN RECEIVED FROM /DONNELL CRUMP RN.TRAMADOL ORDER CALLED TO [facility] AT [phone].
--- NOTE | 2018-11-18 14:30 | NUR ---
DISCHARGED HOME WITH FAMILY VIA WHEEELCHAIR TO CAR.HAS ALL PERSONAL ITEMS.
--- NOTE | 2018-11-18 17:01 | RHP ---
PATIENT: ASHLEY HUMPHRIES MEDICAL RECORD: [id number] ACCOUNT: [id number] LOCATION:[facility] : 40 ADMISSION DATE: 11/11/18 REHABILITATION HISTORY AND PHYSICAL EXAMINATION POST ADMISSION PHYSICIAN EXAMINATION ADMITTING DIAGNOSES: Status post major multiple fractures. She got fractures of the right posterior 3rd through 7th ribs and also the right lateral fifth rib, also a sacral fracture with anterior angulation, was comminuted and displaced. She had a right pneumothorax. HISTORY OF PRESENT ILLNESS: The patient admitted for the inpatient rehab for major medical trauma. She apparently is a 78-year-old female patient who presented to ED after sustaining a fall down 4 stairs and when she hit her head on the floor and lost consciousness. Complained of head pain, shortness of breath and right-sided rib and sacral pain. She has past medical history of hypertension, osteoporosis, chemo-induced neuropathy, melanoma, right breast cancer, lung cancer. The patient was noted to have multiple fractures and also involving her chest and also her pelvis. She required increased amounts of oxygen during this time. Secondary to pneumothorax, she continues to be on supplemental O2. She had her chest tube pulled on 11/10/2018 and her lungs are being closely monitored. She has also been monitored closely for H&H. She continues to have sacral pain, deconditioning, dyspnea on exertion, weakness and impaired mobility. She is a high risk for fall. She lives alone and has self-care deficits. These are barriers to her discharge home. She was independent with her ADLs and mobility prior to this fall. She is currently set up for mod assist for ADLs and mod assist to max assist with her mobility. She would like to return home at her prior level of functioning or possibly even better if possible. COMORBIDITIES: Include fractures of the right posterior 3rd through 7th ribs and fracture of the right lateral 5th rib, a comminuted displaced sacral fracture, scalp laceration, multiple fractures of her ribs, pneumothorax, head injury, traumatic fall, history of tobacco use, blood loss anemia, neuropathy, hypertension, apnea, BiPAP, melanoma, and breast cancer. PAST MEDICAL HISTORY: Significant for neuropathy. Got a history of hypertension, obstructive sleep apnea, nosebleeds, melanoma, breast cancer, cervical cancer, lung cancer, osteoporosis, melanoma, history of tobacco use, and urinary incontinence. PAST SURGICAL HISTORY: Includes a right mastectomy, partial hysterectomy, right knee surgery, and part of her lung removed. ALLERGIES: SULFA, LISINOPRIL, CITRUS, AND DERIVATIVES. CURRENT MEDICATIONS: Include Cozaar 50 mg daily, she is on Femara 2.5 mg daily, furosemide 20 mg daily, Os-Clint with D daily, Tylenol 650 q.4 hours p.r.n., MiraLax 17 grams in 8 ounces of water daily, Colace 100 mg b.i.d., nifedipine 60 mg b.i.d., Lopressor 100 mg b.i.d., Lipitor 20 mg at bedtime, and [place] 10/325 one tab q.6 hours p.r.n. HABITS: Does have a history of tobacco use. FAMILY HISTORY: Noncontributory. HISTORY AND PHYSICAL [id number] ASHLEY HUMPHRIES SOCIAL HISTORY: The patient hopes to return back home and get back to her prior level of functioning. REVIEW OF SYSTEMS: GENERAL: Does complain of weakness and fatigue. HEENT: Denies cold, cough, or congestion. CARDIOVASCULAR: Denies chest pain. PHYSICAL EXAMINATION: VITAL SIGNS: Stable, afebrile. GENERAL: Elderly female, in no acute distress, alert upon exam. HEENT: Normocephalic and atraumatic. Mucosa moist. NECK: Supple. No lymphadenopathy. LUNGS: Clear in upper rendon. HEART: Regular rate and rhythm. ABDOMEN: Benign. EXTREMITIES: No clubbing, cyanosis, or edema. NEUROLOGIC: She does have some noted weakness. It should be noted that she does have a lot of pain to palpation in her chest region and also around her pelvis. LABORATORY DATA: White count is 9.4, H&H 8.7 and 27.3, and platelet count was noted to be 189. Her sodium is 142, potassium 3.4, BUN and creatinine of 18 and 1.1, and blood sugars noted to be 114. ASSESSMENT: This is a 78-year-old female patient admitted to rehab with a working diagnosis of multiple medical trauma with multiple fractures. The patient continued to make improvement. We instituted the following multidisciplinary therapies include, but not limited to physical, occupational, respiratory, speech, nutritional services, prosthetics and orthotics. Given her complex medical conditions and risks for more complications, rehabilitation services cannot be provided at a low level of care such as prison facility. PLAN: 1. Admit to [facility] intensive for an inpatient therapy to include the following disciplines: A. Physical therapy to improve gait, all transfer skills and bed mobility to a modified independent level. B. Occupational therapy to improve activities of daily living to a modified independent level. C. Case management to assist with discharge planning and placement options. D. Nutrition to assist with nutritional needs. E. Rehabilitation nursing to assist in monitoring the patient's underlying medical conditions and to assist with any type of bowel or bladder management. 2. The patient's current medication and medical care will be continued. 3. The patient will be placed on standard fall precautions. 4. The patient's estimated length of stay is approximately 7-10 days. 5. Discuss this patient during care team staff meeting this week. TRANSINT:[id number] Voice Confirmation ID: [id number] DOCUMENT ID: [id number] SARAH notes whether there has been none or any medical/functional HISTORY AND PHYSICAL [id number] ASHLEY HUMPHRIES change since admission: - No change since prescreen. SARAH attests patient continues to be appropriate for IRF: - Continues to be appropriate. NATHAN VIRGEN MD at 1701 CC: [id number] DICTATION DATE: 11/12/18 1446 ORTHOPEDIC SHOES SALESPERSON: 11/12/18 1517 DIS IN 11/18/18 [facility] [address] [place] [address]
== END 2018-11-18 14:30 | disposition home health service (06) | DRG 560 ==
LOC: D.REHAB 20:02
PROVIDERS: ADMIT Emergency Medicine; ATTEND Emergency Medicine
DX: S32.10XD Unspecified fracture of sacrum, subsequent encounter for fracture with routine healing (principal); J93.9 Pneumothorax, unspecified; D62 Acute posthemorrhagic anemia; S22.41XD Multiple fractures of ribs, right side, subsequent encounter for fracture with routine healing; W10.9XXD Fall (on) (from) unspecified stairs and steps, subsequent encounter; S01.01XD Laceration without foreign body of scalp, subsequent encounter; G62.9 Polyneuropathy, unspecified; R06.81 Apnea, not elsewhere classified; S36.113D Laceration of liver, unspecified degree, subsequent encounter; S80.12XD Contusion of left lower leg, subsequent encounter; Z87.891 Personal history of nicotine dependence

== ENCOUNTER → 2018-12-15 09:28 | Outpatient (CLI) | payer MEDICARE, BC ==
--- NOTE | 2018-12-16 15:13 | EC ---
PATIENT:ASHLEY HUMPHRIES DATE OF SERVICE: 12/15/18 SEX: F MEDICAL RECORD: [id number] DATE OF : 40 LOCATION:D[facility] AGE OF PATIENT: 78 ADMISSION DATE: 12/15/18 REFERRING PHYSICIAN: INTERPRETING PHYSICIAN: TAYLOR ASTUDILLO MD ECHOCARDIOGRAM REPORT ECHO CHARGES 4 ECHO COMPLETE Date: 12/15/18 CLINICAL DIAGNOSIS: CHEMOTHERAPY/HTN ECHOCARDIOGRAPHIC MEASUREMENTS (adult normal given) AC root (d.<3.7cm) 3.0 cm LV Septum d (<1.2 cm> 1.3 cm Valve Excursion 1.8 cm LV Septum (systole) 1.6 cm Left Atria (s.<4.0cm> 3.8 cm LVPW d(<1.2cm) 1.2 cm RV (d.<2.3cm) 3.6 cm LVPW (sytole) 2.1 cm LV diastole(<5.6CM) 5.2 cm MV E-F(>70mm/sec) cm LV systole 2.2 cm LVOT Diameter 1.8 cm MV exc.(>10mm) cm Est.ejection fraction (50-75%) % DOPPLER: LVIT cm/sec A 87.0 cm/sec E 35.0 cm/sec LA cm/sec RVSP 30.1 mmHg LVOT 129 cm/sec AOP1/2T m/s Asc. Ao 120 cm/sec RVOT 37.0 cm/sec RA cm/sec PA 103 cm/sec AV Gradient Peak 5.7 mmHg AV Mean 3.1 mmHg AV Area 2.4 cm MV Gradient Peak 4.5 mmHg MV Mean 1.0 mmHg MV Area cm COMMENTS: Validation Manager: Lenora NORIEGA Health And Wellness Manager: 2 Dr. Ramirez TAPE# PACS Pericardial Effusion N DATE OF SERVICE: 12/15/2018 PROCEDURE: Echocardiogram. FINDINGS: 1. Left ventricular chamber size is within normal limits. Left ventricular systolic function is normal. Overall ejection fraction estimated at 50%. 2. Left atrium, right atrium, and right ventricle chamber sizes are within normal limits. Left atrium measures 3.8 cm. 3. Valvular structures have normal structure and motion. ECHOCARDIOGRAM REPORT [id number] ASHLEY HUMPHRIES 4. Doppler interrogation reveals mild tricuspid regurgitation, no other valvular insufficiency or stenosis. Pulmonary systolic pressure is estimated at 30 mmHg. 5. No evidence of pericardial effusion or left ventricular thrombus. TRANSINT:[id number] Voice Confirmation ID: [id number] DOCUMENT ID: [id number] TAYLOR ASTUDILLO MD at 1513 CC: [id number] DICTATION DATE: 12/16/18 0855 SENIOR NUCLEAR MEDICINE TECHNOLOGIST: 12/16/18 1204 DEP CLI 12/15/18 [id number] [place] [address]
== END | disposition home or self-care (01) ==
LOC: D.ECHO 09:28
DX: C50.811 Malignant neoplasm of overlapping sites of right female breast (principal); C34.12 Malignant neoplasm of upper lobe, left bronchus or lung; I10 Essential (primary) hypertension; E78.2 Mixed hyperlipidemia; Z23 Encounter for immunization

== ENCOUNTER → 2019-09-26 20:59 | Outpatient (CLI) | payer MEDICARE, BC ==
[2018-11-12 09:37] VITALS: BMI 27.4
== END | disposition home or self-care (01) ==
LOC: D.MAMMO 09-01 10:00 → D.US 09-01 11:00 → D.MAMMO 09-14 09:30
PROVIDERS: ATTEND Surgery
DX: C50.911 Malignant neoplasm of unspecified site of right female breast (principal)

== ENCOUNTER → 2019-11-21 07:57 | Outpatient (CLI) | payer MEDICARE, BC ==
[2018-11-12 09:37] VITALS: BMI 27.4
== END | disposition home or self-care (01) ==
LOC: D.HCCARDIO 07:57
PROVIDERS: ATTEND Internal Medicine Cardiovascular Disease
DX: I25.10 Atherosclerotic heart disease of native coronary artery without angina pectoris (principal)